=== PATIENT | male | born 1935 | race Caucasian/White ===

== ENCOUNTER → 2018-10-23 13:38 | Outpatient (CLI) | payer MEDICARE, OTHER, SELFPAY ==
[2018-10-23 20:32] LABS: Prostate Specific Antigen 2.41 ng/mL (0.10-4.00)
== END ==
PROVIDERS: Family Provider Urology; Visit Provider Internal Medicine
DX: M85.89 Other specified disorders of bone density and structure, multiple sites (principal); C61 Malignant neoplasm of prostate; M89.9 Disorder of bone, unspecified
CPT/HCPCS: 36415; 77080; 84153; 84403

== ENCOUNTER → 2019-05-08 12:44 | Outpatient (CLI) | payer MEDICARE, OTHER, SELFPAY ==
[2019-05-08 14:43] LABS: Prostate Specific Antigen 2.32 ng/mL (0.10-4.00)
== END ==
PROVIDERS: Family Provider Urology; PCP Internal Medicine; Referring Provider Urology; Visit Provider Urology
DX: C61 Malignant neoplasm of prostate (principal)
CPT/HCPCS: 36415; 84153

== ENCOUNTER → 2019-11-12 11:19 | Outpatient (CLI) | payer MEDICARE, OTHER, SELFPAY | PROVIDERS: Family Provider Urology; PCP Internal Medicine; Referring Provider Urology; Visit Provider Urology | DX: C61 Malignant neoplasm of prostate (principal) | CPT/HCPCS: 36415 ==

== ENCOUNTER → 2019-11-26 10:11 | Outpatient (CLI) | payer MEDICARE, OTHER, SELFPAY ==
[2019-11-26 11:53] LABS: Add Manual Diff / Slide Review NO; Basophils Absolute Auto 0 /uL (0-100); Basophils Percent Auto 0.6 % (0-2); Eosinophils Absolute Auto 100 /uL (0-450); Eosinophils Percent Auto 1.7 % (2-4); Hematocrit 42.2 % (41-53); Hemoglobin 14.3 g/dL (13.5-17.5); Lymphocytes Absolute Auto 1500 /uL (1100-4500); Lymphocytes Percent Auto 20.8 % (25-40); Mean Corpuscular HGB Conc 33.9 % (30-36); Mean Corpuscular Hemoglobin 32.6 PG (26-34); Mean Corpuscular Volume 96.3 fL (80-100); Monocytes Absolute Auto 700 /uL (0-900); Monocytes Percent Auto 9.6 % (3-14); Neutrophils Absolute Auto 4900 /uL (1500-7000); Neutrophils Percent Auto 67.3 % (50-75); Platelet Count 152 X10^3/uL (150-400); Red Blood Cell Count 4.38 X10^6/uL (4.5-5.9); Red Cell Distribution Width 13.5 % (11.6-14.8); White Blood Cell Count 7.3 X10^3/uL (4.5-11.0)
[2019-11-26 12:22] LABS: Hemoglobin A1C% w Est Avg Glu 5.8 % (4.0-6.0)
[2019-11-26 12:25] LABS: Alanine Aminotransferase 37 IU/L (<50); Albumin Globulin Ratio 1.4 (1.0-2.8); Alkaline Phosphatase 134 U/L (38-126); Aspartate Aminotransferase 49 IU/L (17-59); BUN Creatinine Ratio 14.8 (6-22); Blood Urea Nitrogen 16 mg/dL (9-20); Calcium 8.6 mg/dL (8.4-10.2); Carbon Dioxide 28 mmol/L (22-32); Chloride 105 mmol/L (98-107); Cholesterol 109 mg/dL (140-199); Estimated Glomerular Filt Rate > 60.0 mL/min (>60); Globulin 2.9 g/dL (1.7-4.1); Glucose 94 mg/dL (80-110); HDL Cholesterol 60 mg/dL (40-60); HEMOLYSIS < 15 (0-50); LDL Cholesterol Calculated 37 mg/dL (<100); Potassium 4.2 mmol/L (3.4-5.1); Sodium 138 mmol/L (137-145); Total Protein 6.9 g/dL (6.3-8.2); Triglycerides 61 mg/dL (35-150); VLDL Cholesterol Calculated 12 mg/dL (2-30)
[2019-11-26 12:57] LABS: Vitamin B12 394 pg/mL (239-931)
--- NOTE | 2019-12-12 15:47 | PM.CARDMON.1 ---
Director Of Sustainability Report Referral & Results Date Patient Seen: 11/26/19 Requesting provider: Natan Vizcaino Indication: Syncope Duration of monitoring (days): 7 Diary information: There are no patient triggered events or patient diary entries Data: Minimum heart rate was 40 beats per minute at 03:57 on 12/01/2019 Maximum sinus heart rate was 106 beats per minute at 15:24 on 11/29/2019 Overall maximum heart rate was 171 beats per minute at 15:30 on 12/02/2019 during a 10 beat run of SVT Patient had frequent PACs a that were about 12.4% of identified beats including supraventricular couplets Patient had occasional PVCs that were about 4.0% of identified beats There were 163 runs of SVT the longest lasting 30.6 seconds at a rate of 115 beats per minute, which suggest more likely atrial tachycardia. The maximum heart rate was the 10 beat run as above. Impression: Patient with rather frequent supraventricular ectopic dysrhythmias as above including frequent but very short runs of SVT/atrial tachycardia No etiology for syncope identified on this study however
== END ==
PROVIDERS: Family Provider Urology; PCP Internal Medicine; Referring Provider Internal Medicine; Visit Provider Internal Medicine
DX: Z86.39 Personal history of other endocrine, nutritional and metabolic disease (principal); R55 Syncope and collapse; Z13.6 Encounter for screening for cardiovascular disorders; K21.9 Gastro-esophageal reflux disease without esophagitis
CPT/HCPCS: 0296T; 0298T; 36415; 80053; 80061; 82607; 83036; 84443; 85025

== ENCOUNTER → 2019-12-24 09:53 | Outpatient (CLI) | payer MEDICARE, OTHER, SELFPAY ==
--- NOTE | 2019-12-24 | DI.RAD.S_ITS ---
PROCEDURE: XR DEXA AXIAL SKELETON INDICATIONS: AGE RELATED OSTEOPOROSIS COMPARISON: [facility], CR, XR DEXA AXIAL SKELETON, 10/23/2018, 14:29. FINDINGS: This blank DEXA report has been sent in error by the PACS system. The correct and complete report will be forthcoming in 1-2 days. Thank you for your patience and understanding. Dictated by: Juliet Dickson MD, PhD on 12/24/2019 at 16:40 Approved by: Juliet Dickson MD, PhD on 12/24/2019 at 16:40
== END ==
PROVIDERS: Family Provider Urology; PCP Internal Medicine; Referring Provider Internal Medicine; Visit Provider Internal Medicine
DX: M81.0 Age-related osteoporosis without current pathological fracture (principal); Z85.46 Personal history of malignant neoplasm of prostate
CPT/HCPCS: 77080

== ENCOUNTER → 2020-05-26 10:53 | Outpatient (CLI) | payer MEDICARE, OTHER, SELFPAY ==
[2020-05-26 12:50] LABS: Prostate Specific Antigen 2.02 ng/mL (0.10-4.00)
== END ==
PROVIDERS: Family Provider Urology; PCP Internal Medicine; Referring Provider Urology; Visit Provider Urology
DX: C61 Malignant neoplasm of prostate (principal)
CPT/HCPCS: 36415; 84153

== ENCOUNTER → 2020-09-10 14:08 | Outpatient (CLI) | payer MEDICARE, OTHER, SELFPAY ==
[2020-09-10 14:55] LABS: Add Manual Diff / Slide Review NO; Basophils Absolute Auto 100 /uL (0-100); Basophils Percent Auto 0.9 % (0-2); Eosinophils Absolute Auto 100 /uL (0-450); Hematocrit 41.7 % (41-53); Hemoglobin 13.7 g/dL (13.5-17.5); Lymphocytes Absolute Auto 1800 /uL (1100-4500); Lymphocytes Percent Auto 32.9 % (25-40); Mean Corpuscular HGB Conc 32.8 % (30-36); Mean Corpuscular Hemoglobin 31.9 PG (26-34); Mean Corpuscular Volume 97.4 fL (80-100); Monocytes Absolute Auto 700 /uL (0-900); Monocytes Percent Auto 12.1 % (3-14); Neutrophils Absolute Auto 2900 /uL (1500-7000); Neutrophils Percent Auto 52.1 % (50-75); Platelet Count 153 X10^3/uL (150-400); Red Blood Cell Count 4.28 X10^6/uL (4.5-5.9); Red Cell Distribution Width 14.1 % (11.6-14.8); White Blood Cell Count 5.6 X10^3/uL (4.5-11.0)
[2020-09-10 16:04] LABS: Alanine Aminotransferase 38 IU/L (<50); Albumin 3.8 g/dL (3.5-5.0); Albumin Globulin Ratio 1.4 (1.0-2.8); Alkaline Phosphatase 131 U/L (38-126); Aspartate Aminotransferase 51 IU/L (17-59); BUN Creatinine Ratio 19.1 (6-22); Bilirubin Total 0.8 mg/dL (0.2-1.3); Blood Urea Nitrogen 18 mg/dL (9-20); Calcium 8.7 mg/dL (8.4-10.2); Carbon Dioxide 29 mmol/L (22-32); Chloride 106 mmol/L (98-107); Estimated Glomerular Filt Rate > 60.0 mL/min (>60); Globulin 2.8 g/dL (1.7-4.1); Glucose 100 mg/dL (80-110); HEMOLYSIS < 15 (0-50); Sodium 140 mmol/L (137-145); Total Protein 6.6 g/dL (6.3-8.2)
[2020-09-10 16:35] LABS: Thyroid Stimulating Hormone 1.89 uIU/mL (0.47-4.68)
[2020-09-10 16:56] LABS: Vitamin D 25 Hydroxy (D3) 73.7 ng/mL (30.0-100.0)
[2020-09-11 07:47] LABS: Parathyroid Hormone Int 42 pg/mL (15-65)
[2020-09-11 16:54] LABS: Deamidated Gliadin Ab IgA 2 units (0-19); Deamidated Gliadin Ab IgG 2 units (0-19); Immunoglobulin A,Qn 106 mg/dL (61-437); t-Transglutaminase IgA <2 U/mL (0-3)
== END ==
PROVIDERS: Family Provider Urology; PCP Internal Medicine; Referring Provider Psychiatry & Neurology Neurology; Visit Provider Psychiatry & Neurology Neurology
DX: K90.0 Celiac disease (principal); M81.0 Age-related osteoporosis without current pathological fracture
CPT/HCPCS: 36415; 80053; 82306; 82784; 83516; 83970; 84443; 85025

== ENCOUNTER → 2020-09-21 08:39 | Outpatient (CLI) | payer MEDICARE, OTHER, SELFPAY ==
[2020-09-21 10:34] LABS: Collection Time Urine 24 Hours; Creatinine 24 Hour Urine 1332 mg/day (1000-2000); Creatinine Urine Random 68.3 mg/dL; Total Volume Urine 1950 mL
[2020-09-21 11:31] LABS: Calcium 24 Hour Urine 105 mg/day (100-300); Calcium Urine Random 5.4 mg/dL; Collection Time Urine 24 Hours; Total Volume Urine 1950 mL
== END ==
PROVIDERS: Family Provider Urology; PCP Internal Medicine; Referring Provider Psychiatry & Neurology Neurology; Visit Provider Psychiatry & Neurology Neurology
DX: K81.0 Acute cholecystitis (principal)
CPT/HCPCS: 82340; 82570

== ENCOUNTER → 2020-10-19 08:41 | Outpatient (CLI) | payer MEDICARE, OTHER, SELFPAY ==
[2020-10-19 09:51] LABS: Alkaline Phosphatase 138 U/L (38-126); Gamma Glutamyl Transpeptidase 15 U/L (15-73)
[2020-10-21 16:32] LABS: Alkaline Phosphatase, Bone Spe 17.1 ug/L (7.6-24.4)
== END ==
PROVIDERS: Family Provider Urology; PCP Internal Medicine; Referring Provider Internal Medicine Endocrinology, Diabetes & Metabolism; Visit Provider Internal Medicine Endocrinology, Diabetes & Metabolism
DX: R74.8 Abnormal levels of other serum enzymes (principal)
CPT/HCPCS: 36415; 82977; 84075; 84080

== ENCOUNTER → 2020-12-01 09:47 | Outpatient (CLI) | payer MEDICARE, OTHER, SELFPAY ==
--- NOTE | 2020-12-01 | DI.RAD.S_ITS ---
PROCEDURE: XR DEXA AXIAL SKELETON INDICATIONS: Other osteoporosis without current pathological COMPARISON: [facility], CR, XR DEXA AXIAL SKELETON, 12/24/2019, 10:29. FINDINGS: This blank DEXA report has been sent in error by the PACS system. The correct and complete report will be forthcoming in 1-2 days. Thank you for your patience and understanding. Dictated by: Juliet Dickson MD, PhD on 12/02/2020 at 10:03 Approved by: Juliet Dickson MD, PhD on 12/02/2020 at 10:04
[2020-12-01 12:36] LABS: Prostate Specific Antigen 1.84 ng/mL (0.10-4.00)
== END ==
PROVIDERS: Family Provider Urology; PCP Internal Medicine; Referring Provider Psychiatry & Neurology Neurology; Visit Provider Internal Medicine Endocrinology, Diabetes & Metabolism
DX: M81.0 Age-related osteoporosis without current pathological fracture (principal); C61 Malignant neoplasm of prostate; M85.88 Other specified disorders of bone density and structure, other site; M85.852 Other specified disorders of bone density and structure, left thigh; M85.851 Other specified disorders of bone density and structure, right thigh
CPT/HCPCS: 36415; 77080; 84153

== ENCOUNTER → 2021-05-31 09:46 | Outpatient (CLI) | payer MEDICARE, OTHER, SELFPAY ==
[2021-05-31 14:10] LABS: Prostate Specific Antigen 1.47 ng/mL (0.10-4.00)
== END ==
PROVIDERS: Family Provider Urology; PCP Internal Medicine; Referring Provider Urology; Visit Provider Urology
DX: C61 Malignant neoplasm of prostate (principal)
CPT/HCPCS: 36415; 84153

== ENCOUNTER → 2021-12-14 12:49 | Outpatient (CLI) | payer MEDICARE, OTHER, SELFPAY ==
[2021-12-14 14:03] LABS: Prostate Specific Antigen 1.51 ng/mL (0.10-4.00)
== END ==
PROVIDERS: Family Provider Urology; PCP Internal Medicine; Referring Provider Urology; Visit Provider Urology
DX: C61 Malignant neoplasm of prostate (principal)
CPT/HCPCS: 36415; 84153

== ENCOUNTER → 2021-12-26 14:12 | Outpatient (CLI) | payer MEDICARE, OTHER, SELFPAY | PROVIDERS: Family Provider Urology; PCP Internal Medicine; Referring Provider Internal Medicine Endocrinology, Diabetes & Metabolism; Visit Provider Internal Medicine Endocrinology, Diabetes & Metabolism | DX: M85.852 Other specified disorders of bone density and structure, left thigh (principal); Z13.820 Encounter for screening for osteoporosis | CPT/HCPCS: 77080 ==

== ENCOUNTER → 2022-06-27 10:13 | Outpatient (CLI) | payer MEDICARE, OTHER, SELFPAY ==
[2022-06-27 15:45] LABS: Prostate Specific Antigen 1.24 ng/mL (0.10-4.00)
== END ==
PROVIDERS: Family Provider Urology; PCP Internal Medicine; Referring Provider Urology; Visit Provider Urology
DX: C61 Malignant neoplasm of prostate (principal)
CPT/HCPCS: 36415; 84153

== ENCOUNTER 2022-11-26 22:03 | Emergency (ER) | payer MEDICARE, OTHER, SELFPAY ==
--- NOTE | 2022-11-26 22:05 | DI.RAD.S_ITS ---
PROCEDURE: XR CHEST 1V INDICATIONS: Chest pain. TECHNIQUE: One view of the chest was acquired. COMPARISON: None. FINDINGS: Surgical changes and devices: None. Lungs and pleura: No dense consolidation or pleural effusions. Lung volumes are slightly low. Mediastinum: Heart size is borderline enlarged. Bones and chest wall: Degenerative changes. IMPRESSION: Portable single view study with low lung volumes, limiting evaluation. No acute radiographic abnormality is seen. Borderline cardiomegaly Dictated by: Kvng Braswell M.D. on 11/26/2022 at 22:45 Approved by: Kvng Braswell M.D. on 11/26/2022 at 22:45
[2022-11-26 22:07] VITALS: PULSE 79; RESP 20; O2SAT 99
[2022-11-26 22:08] VITALS: BP 121/63; PULSE 77; RESP 18; TEMP 35.8; O2SAT 99; BMI 22.4
[2022-11-26 22:29] LABS: Add Manual Diff / Slide Review NO; Basophils Absolute Auto 100 /uL (0-100); Basophils Percent Auto 0.7 % (0-2); Eosinophils Absolute Auto 100 /uL (0-450); Eosinophils Percent Auto 1.1 % (2-4); Hematocrit 44.3 % (41-53); Hemoglobin 15.1 g/dL (13.5-17.5); Lymphocytes Absolute Auto 1200 /uL (1100-4500); Lymphocytes Percent Auto 13.2 % (25-40); Mean Corpuscular HGB Conc 34.2 % (30-36); Mean Corpuscular Hemoglobin 33.4 PG (26-34); Mean Corpuscular Volume 97.7 fL (80-100); Monocytes Absolute Auto 700 /uL (0-900); Monocytes Percent Auto 7.7 % (3-14); Neutrophils Absolute Auto 6800 /uL (1500-7000); Neutrophils Percent Auto 77.3 % (50-75); Platelet Count 137 X10^3/uL (150-400); Red Blood Cell Count 4.53 X10^6/uL (4.5-5.9); Red Cell Distribution Width 14.2 % (11.6-14.8); White Blood Cell Count 8.8 X10^3/uL (4.5-11.0)
[2022-11-26 22:30] VITALS: PULSE 105; RESP 30; O2SAT 91
[2022-11-26 22:31] VITALS: BP 109/64; PULSE 88; RESP 25; O2SAT 98
[2022-11-26 22:35] LABS: INR 1.4 (0.9-1.3); Prothrombin Time 15.7 SECONDS (10.1-12.7)
[2022-11-26 22:38] LABS: PTT Partial Thromboplastin Tim 40 SECONDS (26-36)
[2022-11-26 22:40] LABS: Alanine Aminotransferase 51 IU/L (<50); Albumin 4.5 g/dL (3.5-5.0); Albumin Globulin Ratio 1.3 (1.0-2.8); Alkaline Phosphatase 175 U/L (38-126); Aspartate Aminotransferase 54 IU/L (17-59); Bilirubin Total 1.2 mg/dL (0.2-1.3); Blood Urea Nitrogen 24 mg/dL (9-20); Calcium 9.2 mg/dL (8.4-10.2); Carbon Dioxide 29 mmol/L (22-32); Chloride 102 mmol/L (98-107); Creatine Kinase 216 U/L (55-170); Estimated Glomerular Filt Rate > 60 mL/min (>60); Globulin 3.5 g/dL (1.7-4.1); Glucose 113 mg/dL (80-110); HEMOLYSIS 25 (0-50); Lipase 90 U/L (23-300); Potassium 4.2 mmol/L (3.4-5.1); Sodium 138 mmol/L (137-145)
[2022-11-26 22:51] LABS: Troponin I 0.016 ng/mL (0.01-0.034)
[2022-11-26 23:00] VITALS: BP 122/68; PULSE 85; RESP 39; O2SAT 97
--- NOTE | 2022-11-26 23:25 | ED.CHESTPAIN ---
HPI - Chest Pain General Chief Complaint: Chest Pain Stated Complaint: Chest Pain Time Seen by Provider: 11/26/22 22:10 Source: patient Mode of arrival: EMS History of Present Illness HPI narrative: Patient is a 87-year-old male history of atrial fibrillation on atenolol and Eliquis presenting today with. He reports while watching TV sudden onset of chest pain and went down both arms. It is definitely worse when he takes a deep breath. Although is subsiding some. It did not go to his back or his jaw. He is no known history of coronary artery disease. He has what sounds like a loop recorder embedded. [facility] He is no shortness of breath. He had a normal today without any fever or issue. 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 Related Data Home Medications Medication Instructions Recorded Confirmed apixaban 5 mg tablet (Eliquis) 5 mg PO BID 11/26/22 11/26/22 atenolol 25 mg tablet 25 mg PO BID 11/26/22 11/26/22 atorvastatin 40 mg tablet 40 mg PO DAILY 11/26/22 11/26/22 Allergies Allergy/AdvReac Type Severity Reaction Status Date / Time No Known Drug Allergies Allergy Verified 11/26/22 22:13 Review of Systems Review of Systems ROS Unobtainable: All systems reviewed & are unremarkable except as noted in HPI and below Exam Initial Vital Signs Initial Vital Signs: Vital Signs Pulse Rate 79 11/26/22 22:07 Respiratory Rate 20 11/26/22 22:07 Pulse Oximetry 99 11/26/22 22:07 GENERAL: Alert 87-year-old male appears well and in no acute distress. HEENT: Head atraumatic,EOMI, pupils reactive, CARDIOVASCULAR: Irregularly irregular RESPIRATORY: Breath sounds equal bilaterally, no wheezes rales or rhonchi. ABDOMEN: Soft, nontender. Normoactive bowel sounds all 4 quadrants. No guarding or rebound. EXTREMITIES: Normal range of motion, no clubbing or edema. Neurovascularly intact NEUROLOGICAL: Alert and oriented x4. SKIN: Warm, dry, no laceration, no petechiae, no rashes or lesions. Course Orders Ordered: ED Orders 11/26/22 22:05 XR chest 1V Stat EKG-12 Lead Stat 11/26/22 22:18 BNP [NT-proBNP (BNP-Adult 18+)] Stat Complete Blood Count AUTO DIFF Stat Comprehensive Metabolic Panel Stat Lipase Stat Magnesium Stat PTT Partial Thromboplastin [place] Stat Prothrombin Time INR Stat Troponin & CK Cardiac Panel Stat 11/27/22 00:26 Trop I [Troponin I] Stat Discontinued Medications Aspirin (Aspirin 81 Mg Chew Tab) 324 mg PO NOW ONE Stop: 11/26/22 22:06 Last Admin: 11/26/22 22:07 Dose: Not Given Documented By: KURTIS Vital Signs Vital signs: Vital Signs - 8 hr 11/26/22 23:00 11/26/22 23:00 11/26/22 23:30 Pulse Rate 85 Respiratory Rate 39 H Blood Pressure 122/68 113/68 Pulse Oximetry 97 11/26/22 23:30 11/27/22 00:00 11/27/22 00:00 Pulse Rate 86 88 Respiratory Rate 64 H 67 H Blood Pressure 109/74 Pulse Oximetry 97 96 11/27/22 00:30 11/27/22 00:30 11/27/22 01:00 Pulse Rate 87 Respiratory Rate Blood Pressure 127/59 L 119/61 Pulse Oximetry 96 11/27/22 01:00 11/27/22 01:30 11/27/22 01:30 Pulse Rate 96 H 99 H Respiratory Rate Blood Pressure 119/78 Pulse Oximetry 95 95 11/27/22 02:00 11/27/22 02:00 11/27/22 02:31 Pulse Rate 93 H 157 H Respiratory Rate Blood Pressure 118/58 L Pulse Oximetry 95 11/27/22 02:32 11/27/22 02:32 11/27/22 03:00 Pulse Rate 157 H Respiratory Rate Blood Pressure 116/79 100/64 Pulse Oximetry 91 11/27/22 03:00 11/27/22 03:30 11/27/22 03:30 Pulse Rate 97 H 93 H Respiratory Rate 18 Blood Pressure 102/60 Pulse Oximetry 95 95 11/27/22 04:00 11/27/22 04:00 11/27/22 04:30 Pulse Rate 85 Respiratory Rate Blood Pressure 113/58 L 113/62 Pulse Oximetry 94 11/27/22 04:30 11/27/22 05:00 11/27/22 05:00 Pulse Rate 87 90 Respiratory Rate 18 Blood Pressure 108/61 Pulse Oximetry 94 95 11/27/22 05:30 11/27/22 05:30 11/27/22 06:00 Pulse Rate 87 Respiratory Rate Blood Pressure 106/61 103/59 L Pulse Oximetry 93 11/27/22 06:00 Pulse Rate 86 Respiratory Rate Blood Pressure Pulse Oximetry 94 MDM - Chest Pain Lab Data 11/26/22 22:18 11/26/22 22:18 Labs: Lab Results 11/26/22 11/26/22 11/26/22 Range/Units 22:18 22:18 22:18 WBC 8.8 (4.5-11.0) X10^3/uL RBC 4.53 (4.5-5.9) X10^6/uL Hgb 15.1 (13.5-17.5) g/dL Hct 44.3 (41-53) % MCV 97.7 (80-100) fL MCH 33.4 (26-34) PG MCHC 34.2 (30-36) % RDW 14.2 (11.6-14.8) % Plt Count 137 L (150-400) X10^3/uL Neut % (Auto) 77.3 H (50-75) % Lymph % (Auto) 13.2 L (25-40) % Beaver % (Auto) 7.7 (3-14) % Eos % (Auto) 1.1 L (2-4) % Baso % (Auto) 0.7 (0-2) % Neut # (Auto) 6800 (1462-3526) /uL Lymph # (Auto) 1200 (4297-8097) /uL Beaver # (Auto) 700 (0-900) /uL Eos # (Auto) 100 (0-450) /uL Baso # (Auto) 100 (0-100) /uL PT 15.7 H (10.1-12.7) SECONDS INR 1.4 H (0.9-1.3) APTT 40 H (26-36) SECONDS Sodium 138 (137-145) mmol/L Potassium 4.2 (3.4-5.1) mmol/L Chloride 102 (98-107) mmol/L Carbon Dioxide 29 (22-32) mmol/L BUN 24 H (9-20) mg/dL Creatinine 1.09 (0.66-1.25) mg/dL Estimated GFR > 60 (>60) mL/min BUN/Creatinine Ratio 22.0 (6-22) Glucose 113 H (80-110) mg/dL Calcium 9.2 (8.4-10.2) mg/dL Magnesium 2.0 (1.6-2.3) mg/dL Total Bilirubin 1.2 (0.2-1.3) mg/dL AST 54 (17-59) IU/L ALT 51 H (<50) IU/L Alkaline Phosphatase 175 H (38-126) U/L Total Creatine Kinase 216 H (55-170) U/L Troponin I 0.016 (0.01-0.034) ng/mL NT-Pro-B Natriuret Pep (<450) pg/mL Total Protein 8.0 (6.3-8.2) g/dL Albumin 4.5 (3.5-5.0) g/dL Globulin 3.5 (1.7-4.1) g/dL Albumin/Globulin Ratio 1.3 (1.0-2.8) Lipase 90 (23-300) U/L 11/26/22 11/27/22 Range/Units 22:18 00:26 WBC (4.5-11.0) X10^3/uL RBC (4.5-5.9) X10^6/uL Hgb (13.5-17.5) g/dL Hct (41-53) % MCV (80-100) fL MCH (26-34) PG MCHC (30-36) % RDW (11.6-14.8) % Plt Count (150-400) X10^3/uL Neut % (Auto) (50-75) % Lymph % (Auto) (25-40) % Beaver % (Auto) (3-14) % Eos % (Auto) (2-4) % Baso % (Auto) (0-2) % Neut # (Auto) (4904-5096) /uL Lymph # (Auto) (3125-8124) /uL Beaver # (Auto) (0-900) /uL Eos # (Auto) (0-450) /uL Baso # (Auto) (0-100) /uL PT (10.1-12.7) SECONDS INR (0.9-1.3) APTT (26-36) SECONDS Sodium (137-145) mmol/L Potassium (3.4-5.1) mmol/L Chloride (98-107) mmol/L Carbon Dioxide (22-32) mmol/L BUN (9-20) mg/dL Creatinine (0.66-1.25) mg/dL Estimated GFR (>60) mL/min BUN/Creatinine Ratio (6-22) Glucose (80-110) mg/dL Calcium (8.4-10.2) mg/dL Magnesium (1.6-2.3) mg/dL Total Bilirubin (0.2-1.3) mg/dL AST (17-59) IU/L ALT (<50) IU/L Alkaline Phosphatase (38-126) U/L Total Creatine Kinase (55-170) U/L Troponin I 0.015 (0.01-0.034) ng/mL NT-Pro-B Natriuret Pep 3500 H (<450) pg/mL Total Protein (6.3-8.2) g/dL Albumin (3.5-5.0) g/dL Globulin (1.7-4.1) g/dL Albumin/Globulin Ratio (1.0-2.8) Lipase (23-300) U/L MDM Narrative Medical decision making narrative: Patient 87-year-old male presents today with chest pain. He is a history of atrial fibrillation presents in AFib with rate control. He reports that every time he breathes it hurts. Nitro did not help with his pain. He denies any significant shortness of breath. Vitals remained stable. He actually did not receive anything for his pain. It is really nonradiating. He is 2- troponin. At this time I feel like chest pain is not cardiac it has been ongoing for couple of hours worse with breathing. He is not wanting anything for pain. Patient's symptoms are not severe and not really present when he ambulates. He is able to ambulate and walk around the ED without recurrent of symptoms. He does [facility] [place]. Multiple etiologies for patient's symptoms considered including, but not limited to: Acute coronary syndrome, AFib with RVR, COVID-19, Prior Charts reviewed: Labs reviewed and interpreted by myself: No pertinent findings, pertinent negatives include 2- troponins. BNP also elevated at 3500 but no evidence of fluid overload Imaging reviewed: Consultations: Patient's symptoms improved over duration of stay with above-stated therapies. Findings and discharge diagnosis discussed with patient/family followed by verbalization of understanding Return precautions discussed with patient/family whom verbalize understanding of diagnosis and plan [place] Tax[place] cab difficult to get very expensive not all take wheelchairs. Patient's family and son called. Discharge Plan Departure Patient Disposition: Home Clinical Impression: Atypical chest pain Instructions: DI for Atypical Chest Pain Activity Restrictions/Additional Instructions: *You have been diagnosed with atypical chest pain *What to do: At this time please call and talk with your Leelee murguia cat scan technologist. You may require stress test *Continue to take medications as directed *Follow up with your primary care provider in 2-3 days or call [phone] *Return to ER if you should have increasing chest pain palpitations dizziness shortness of breath or any new, worsening or concerning symptoms Prescriptions: No Action atorvastatin 40 mg tablet 40 mg PO DAILY atenolol 25 mg tablet 25 mg PO BID Eliquis 5 mg tablet 5 mg PO BID Referrals: Natan Vizcaino MD [Primary Care Provider] - Stand Alone Forms: Patient Portal/API
[2022-11-26 23:30] VITALS: BP 113/68; PULSE 86; RESP 64; O2SAT 97
[2022-11-26 23:38] LABS: NT-proBNP (BNP-Adult 18+) 3500 pg/mL (<450)
--- NOTE | 2022-11-26 23:54 | PC.NURSE ---
EKG performed by this RN. 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 Provider made aware.
[2022-11-27] VITALS (14 sets, daily range): BP systolic 100–127; BP diastolic 58–79; PULSE 85–157; RESP 18–67; O2SAT 91–96
[2022-11-27 00:56] LABS: Troponin I 0.015 ng/mL (0.01-0.034)
--- NOTE | 2022-11-27 02:28 | PC.NURSE ---
AMBULATED 95% ON RA
--- NOTE | 2022-11-27 02:44 | PC.NURSE ---
pt is dc but will stay in [place]m 10 until cabs are running in am so he and his can take a taxi to the [facility] terminal to go home
--- NOTE | 2022-11-27 03:47 | PC.NURSE ---
This Tech spoke with Pt about transportation back home to [facility] via taxi vs calling family that lives in [place], that can accommodate his spouses wheel chair and her mobility restrictions. Pt would prefer to wait until [facility] opens and see if taxi can go to [facility] before calling family.
== END 2022-11-27 06:55 | disposition home or self-care (01) ==
PROVIDERS: Emergency Provider Emergency Medicine; Family Provider Urology; PCP Internal Medicine
DX: R07.89 Other chest pain (principal); Z79.01 Long term (current) use of anticoagulants
CPT/HCPCS: 36415; 71045; 80053; 82550; 83690; 83735; 83880; 84484; 85025; 85610; 85730; 93005; 99283; 99284

== ENCOUNTER → 2023-07-19 10:41 | Outpatient (CLI) | payer MEDICARE, OTHER, SELFPAY ==
[2023-07-19 13:46] LABS: Prostate Specific Antigen 0.987 ng/mL (0.10-4.00)
== END ==
PROVIDERS: Family Provider Urology; PCP Internal Medicine; Referring Provider Urology; Visit Provider Urology
DX: C61 Malignant neoplasm of prostate (principal)
CPT/HCPCS: 36415; 84153

== ENCOUNTER → 2024-04-28 09:24 | Outpatient (CLI) | payer MEDICARE, OTHER, SELFPAY | PROVIDERS: Family Provider Urology; PCP Internal Medicine; Referring Provider Internal Medicine Cardiovascular Disease; Visit Provider Internal Medicine Cardiovascular Disease | DX: R55 Syncope and collapse (principal) | CPT/HCPCS: 93242; 93244 ==

== ENCOUNTER → 2024-09-18 11:29 | Outpatient (CLI) | payer MEDICARE, OTHER, SELFPAY ==
[2024-09-18 13:18] LABS: Prostate Specific Antigen 0.769 ng/mL (0.10-4.00)
== END ==
PROVIDERS: Family Provider Urology; PCP Internal Medicine; Referring Provider Physician Assistant; Visit Provider Physician Assistant
DX: Z85.46 Personal history of malignant neoplasm of prostate (principal)
CPT/HCPCS: 36415; 84153